=== PATIENT | female | born 1975 | race Hispanic/Latino ===

== ENCOUNTER 2018-02-26 00:58 | Inpatient (IN) | payer SELFPAY ==
[~2018-02-26] VITALS: Ht 157.5 cm; Wt 88.1 kg
[2018-02-26 01:50] LABS: BASOPHILS % (AUTO) 0.4 % (0.0-5.0); EOSINOPHILS % (AUTO) 1.8 % (0.0-8.0); HEMATOCRIT 40.5 % (36-48); LYMPHOCYTES % (AUTO) 21.1 % (21.0-51.0); MEAN CORPUSCULAR HEMOGLOBIN 29.7 pg (27.0-33.0); MEAN CORPUSCULAR HGB CONC 33.2 g/dL (32.0-36.0); MEAN CORPUSCULAR VOLUME 89.4 fL (79-99); MONOCYTES % (AUTO) 5.2 % (3.0-13.0); NEUTROPHILS % (AUTO) 71.5 % (40.0-77.0); PLATELET COUNT (AUTO) 220 K/uL (130-400); RED BLOOD CELL COUNT(AUTO) 4.53 MIL/uL (4.00-5.50); RED CELL DISTRIBUTION WIDTH 13.7 % (11.0-15.5)
[2018-02-26 01:56] LABS: APPEARANCE,URINE Clear (CLEAR); BILIRUBIN,URINE Negative (NEGATIVE); COLOR,URINE Yellow (YELLOW); GLUCOSE, URINE (UA) Negative (NEGATIVE); KETONES,URINE Negative (NEGATIVE); LEUKOCYTE ESTERASE ,URINE Trace (NEGATIVE); NITRATE,URINE Negative (NEGATIVE); OCCULT BLOOD,URINE Trace (NEGATIVE); PROTEIN,URINE POS 1+ (NEGATIVE); UROBILINOGEN,URINE 0.2 mg/dL (0.2-1.0)
[2018-02-26 02:03] LABS: CREATININE 0.8 mg/dL (0.5-1.5); POTASSIUM 4.3 mmol/L (3.5-5.1)
[2018-02-26 02:03] LABS: AMPHET/METH SCREEN,URINE NEGATIVE (NEGATIVE); BARBITURATE SCREEN, URINE NEGATIVE (NEGATIVE); BENZODIAZEPINES SCREEN,URINE NEGATIVE (NEGATIVE); CANNABINOID SCREEN,URINE NEGATIVE (NEGATIVE); COCAINE SCREEN,URINE NEGATIVE (NEGATIVE); OPIATE SCREEN,URINE NEGATIVE (NEGATIVE); PHENCYCLIDINE SCREEN,URINE NEGATIVE (NEGATIVE)
[2018-02-26 02:08] LABS: BACTERIA,URINE Rare /HPF (None Seen); MUCUS,URINE Few LPF (None Seen); RBC,URINE 0-1 /HPF (0-1)
[2018-02-26 02:11] LABS: CREATINE KINASE, TOTAL 103 U/L (21-232); MYOGLOBIN 33 ng/mL (10-92); TROPONIN I < 0.04 ng/mL (0.00-0.06)
[2018-02-26 02:13] LABS: ALBUMIN 3.8 g/dL (3.5-5.0); BILIRUBIN,TOTAL 0.2 mg/dL (0.2-1.0); TOTAL PROTEIN, SERUM 8.1 g/dL (6.0-8.3)
[2018-02-26 08:04] LABS: GLUCOSE, CSF 66 mg/dL (40-70); TOTAL PROTEIN, CSF 40 mg/dL (15-45)
[2018-02-26 08:12] LABS: APPEARANCE,CSF CLEAR (CLEAR); COLOR,CSF COLORLESS (COLORLESS); CSF TUBE NUMBER TUBE NO.1; WHITE BLOOD CELL1,CSF 2 CMM (0-5)
[2018-02-26 08:13] LABS: RED BLOOD CELL1,CSF 785 CMM (0-0)
[2018-02-26 08:15] LABS: APPEARANCE2,CSF CLEAR (CLEAR); COLOR2,CSF COLORLESS (COLORLESS); CSF 2ND TUBE NUMBER TUBE NO.4
[2018-02-26 08:18] LABS: CSF TOTAL VOLUME 3.5 mL
[2018-02-26] MEDS ORDERED: ONDANSETRON HCL 4 MG/2 ML VIAL ONE ×2 (09:10→14:01)
[2018-02-26] MEDS ORDERED: SODIUM CHLORIDE 0.9% 1000ML 1,000 ML IV ONE (09:10)
[2018-02-26] MEDS ORDERED: MORPHINE SULFATE 2 MG/ML 1ML SYG ONE ×2 (09:11→14:01)
[2018-02-26] MEDS ORDERED: SODIUM CHLORIDE 0.9% 1000ML 1,000 ML IV SCH (09:58)
[2018-02-26] MEDS ORDERED: MORPHINE SULFATE 2 MG/ML 1ML SYG IVP PRN (10:00)
[2018-02-26] MEDS ORDERED: IOHEXOL-350 75 ML VIAL IV ONE (12:42)
[2018-02-26] MEDS ORDERED: ONDANSETRON HCL 4 MG/2 ML VIAL IVP PRN (14:00)
[2018-02-26] MEDS ORDERED: VALPROIC ACID (AS SODIUM SALT) 500 MG in SODIUM CHLORIDE 0.9% 100 ML IV SCH (14:30)
[2018-02-26 21:00] VITALS: BP 125/92
[2018-02-26] MEDS: FAMOTIDINE/PF 20 MG/2 ML VIAL IV SCH (21:39)
[2018-02-26] MEDS: VALPROIC ACID (AS SODIUM SALT) 500 MG in SODIUM CHLORIDE 0.9% 100 ML IV SCH (21:39)
[2018-02-26 23:00] VITALS: BP 152/66
[2018-02-27] MEDS: SODIUM CHLORIDE 0.9% 1000ML 1,000 ML IV SCH ×3 (02:30→10:18)
[2018-02-27 03:00] VITALS: BP 138/72
[2018-02-27 05:18] LABS: HEMATOCRIT 37.6 % (36-48); MEAN CORPUSCULAR HEMOGLOBIN 29.8 pg (27.0-33.0); MEAN CORPUSCULAR HGB CONC 33.2 g/dL (32.0-36.0); MEAN CORPUSCULAR VOLUME 89.6 fL (79-99); PLATELET COUNT (AUTO) 235 K/uL (130-400); RED CELL DISTRIBUTION WIDTH 13.5 % (11.0-15.5); WHITE BLOOD COUNT (AUTO) 9.6 K/uL (4.8-10.8)
[2018-02-27 05:24] LABS: CREATININE 0.9 mg/dL (0.5-1.5); POTASSIUM 3.9 mmol/L (3.5-5.1)
[2018-02-27 05:32] LABS: INR 0.99 (0.85-1.15); PROTHROMBIN TIME 10.4 SEC (9.6-11.6)
[2018-02-27 08:46] VITALS: BP 141/78
[2018-02-27] MEDS: FAMOTIDINE/PF 20 MG/2 ML VIAL IV SCH (09:00)
[2018-02-27] MEDS: ACETAMINOPHEN 650 MG SUPPOSITORY RC PRN ×2 (10:37→22:13)
[2018-02-27] MEDS ORDERED: COMPOUND IV MISC 1 EACH IVSOLN MISC PRN (11:00)
[2018-02-27] MEDS: VALPROIC ACID (AS SODIUM SALT) 500 MG in SODIUM CHLORIDE 0.9% 100 ML IV SCH ×2 (11:44→22:13)
[2018-02-27 12:45] VITALS: BP 140/73
[2018-02-27 17:24] VITALS: BP 130/73
[2018-02-27 19:30] VITALS: BP 126/70
[2018-02-27] MEDS ORDERED: FAMOTIDINE 20MG TAB 20 MG TAB PO SCH (21:00)
[2018-02-27] MEDS: FAMOTIDINE 20MG TAB 20 MG TAB PO SCH (22:13)
[2018-02-27 23:55] VITALS: BP 127/69
[2018-02-28 04:20] VITALS: BP 122/69
[2018-02-28 04:55] LABS: BASOPHILS % (AUTO) 0.8 % (0.0-5.0); EOSINOPHILS % (AUTO) 2.7 % (0.0-8.0); HEMATOCRIT 37.1 % (36-48); LYMPHOCYTES % (AUTO) 26.4 % (21.0-51.0); MEAN CORPUSCULAR HEMOGLOBIN 30.9 pg (27.0-33.0); MEAN CORPUSCULAR HGB CONC 34.5 g/dL (32.0-36.0); MEAN CORPUSCULAR VOLUME 89.6 fL (79-99); MONOCYTES % (AUTO) 4.5 % (3.0-13.0); NEUTROPHILS % (AUTO) 65.6 % (40.0-77.0); PLATELET COUNT (AUTO) 234 K/uL (130-400); RED BLOOD CELL COUNT(AUTO) 4.14 MIL/uL (4.00-5.50); RED CELL DISTRIBUTION WIDTH 13.4 % (11.0-15.5); WHITE BLOOD COUNT (AUTO) 8.8 K/uL (4.8-10.8)
[2018-02-28 05:10] LABS: BILIRUBIN,TOTAL 0.3 mg/dL (0.2-1.0); CREATININE 0.8 mg/dL (0.5-1.5); POTASSIUM 3.7 mmol/L (3.5-5.1); TOTAL PROTEIN, SERUM 7.2 g/dL (6.0-8.3)
[2018-02-28] MEDS: FAMOTIDINE 20MG TAB 20 MG TAB PO SCH (08:02)
[2018-02-28 08:06] VITALS: BP 126/64
[2018-02-28] MEDS: VALPROIC ACID (AS SODIUM SALT) 500 MG in SODIUM CHLORIDE 0.9% 100 ML IV SCH (11:16)
[2018-02-28] MEDS: ACETAMINOPHEN 650 MG SUPPOSITORY RC PRN (11:17)
[2018-02-28] MEDS ORDERED: DIVA500T2 PO (11:29)
[2018-02-28 12:06] VITALS: BP 123/75
== END 2018-02-28 14:01 | disposition home or self-care (01) | DRG 103 ==
LOC: EDH 00:58 → OBSVTOIN 00:59 → EDHIP 00:59 → 3DH 20:18
PROVIDERS: ADMIT Hospitalist; ATTEND Hospitalist
PROC: 009U3ZX Drainage of Spinal Canal, Percutaneous Approach, Diagnostic (ICD-10-PCS; principal; 2018-02-26)
PROC: 3E0234Z Introduction of Serum, Toxoid and Vaccine into Muscle, Percutaneous Approach (ICD-10-PCS; 2018-02-26)
DX: R51 Headache (principal); D72.829 Elevated white blood cell count, unspecified; F17.210 Nicotine dependence, cigarettes, uncomplicated; E66.9 Obesity, unspecified; Z68.35 Body mass index [BMI] 35.0-35.9, adult; Z23 Encounter for immunization; Z82.3 Family history of stroke; Z82.49 Family history of ischemic heart disease and other diseases of the circulatory system; Z83.3 Family history of diabetes mellitus
CPT/HCPCS: 36415; 70450; 70496; 70551; 80048; 80053; 80305; 81001; 81025; 82550; 82945; 83874; 84157; 84484; 84702; 85025; 85027; 85610; 85730; 87071; 87147; 87205; 87252; 89051; 93005; G0008; J2405; J3490; J7030; Q2038; Q9967